=== PATIENT | male | born 1960 | race Caucasian/White ===

== ENCOUNTER 2017-06-04 10:20 | Outpatient (CLI) | payer OTHER | END 2017-06-04 10:25 | disposition home or self-care (01) | LOC: SONOGRAMA 10:20 | DX: M77.12 Lateral epicondylitis, left elbow (principal); M19.022 Primary osteoarthritis, left elbow ==

== ENCOUNTER 2017-06-04 10:26 | Outpatient (CLI) | payer OTHER | END 2017-06-04 10:27 | disposition home or self-care (01) | LOC: RAD 10:26 | DX: M77.12 Lateral epicondylitis, left elbow (principal); M19.022 Primary osteoarthritis, left elbow ==

== ENCOUNTER 2020-10-04 10:20 | Outpatient (CLI) | payer OTHER | END 2020-10-04 10:30 | disposition home or self-care (01) | LOC: RAD 10:20 | PROVIDERS: ATTEND Physical Medicine & Rehabilitation | DX: M75.111 Incomplete rotator cuff tear or rupture of right shoulder, not specified as traumatic (principal) ==